=== PATIENT | female | born 1960 | race Caucasian/White ===

== ENCOUNTER → 2018-02-26 | Outpatient (CLI) | payer OTHER ==
[~2018-02-26] VITALS: Ht 167.6 cm; Wt 72.6 kg
[~2018-02-26] MED LIST: ARICEPT 5 MG TAB5 MG PO; CARVEDILOL3.125 MG PO; CELEBREX 200 M200 MG PO; CLONAZEPAM 1 MG1 M1 PO; DESYREL300 MG PO; HYDROCODON-ACE1 EA10 PO; HYDROXYZINE HCL25 M1 GT; LAMOTRIGINE200 MG PO; LEVOTHYROXINE100 MCG PO; LISINOPRIL10 MG PO; LORAZEPAM 2MG TA2 M1 PO; LYRICA25 MG PO; OXYCODONE HCL20 M1 PO; PREVACID 30MG C30 M1 PO; PROZAC 20 MG20 M1 PO; TRAZODONE 50 MG50 M1 OR; VALIUM5 MG PO; VERAPAMIL ER120 MG PO; VIIBRYD40 MG PO; WELLBUTRIN SR150 MG PO
--- NOTE | ~2018-02-26 | HPC ---
[facility] [place] [address] PAIN MANAGEMENT CONSULTATION Name: AURELIANO LOPEZ Room #: REG NISSAEnrrique Grace#: [id number] Admission: 02/26/18 Attend Phys: Carmelo Hernandez DO Discharge: Date of : 60 Report #: [id number] THIS REPORT FOR: //name// CC: Octavio Hernandez HISTORY OF PRESENT ILLNESS: The patient is an unfortunate 57-year-old female seen in consultation at the request of Dr. Victor for assistance with treatment of axial back and lumbar radicular pain. The patient notes that she has had chronic back pain for years, but pain seems to have gotten worse in December of this year without antecedent trauma and overuse. She describes pain in the low back, SI area and posterior leg down to her feet. She notes the pain is exacerbated with walking or sitting too long. She has episodic weakness and paresthesia in both legs. She denies saddle anesthesia. Denies bowel or bladder continence changes, but does note she has some urinary urgency. This is being worked up with Urology and she is scheduled to get Botox injections for the same. She uses a cane p.r.n. She incidentally notes pain in the midback as well between the shoulder blades. She describes constant and crushing pain that she rates anywhere from 7 to 10 on a VAS. REVIEW OF SYSTEMS: Complete review of systems attached to the chart and gone over with the patient. She is . She has a significant smoking history greater than 45 years. She is trying to wean. She is down to half pack a day. History of hypertension treated with Coreg and hypothyroidism for which she takes levothyroxine. Significant psychiatric disorder including depression, anxiety and bipolar disorder with jose. She has some cognitive impairment and takes Aricept, Lyrica, Viibryd, Lamictal and clonazepam. Dr. Dave has managed the patient for some time. She had been taking oxycodone 15 mg 6 a day and recently decreased to oxycodone IR 20 mg 4 a day decreasing overall morphine equivalent from 135 to 120 mg. She is certainly moving in the right direction. The patient has been on disability since 2007. I believe, this is primary due to psychiatric disorder along with some component of chronic pain. She rates the pain disability score as 62/70. PHYSICAL EXAMINATION: VITAL SIGNS: Reveals 5 feet, 6 inches, 160 pound female, BMI is 25.8 kilograms per meter squared. Blood pressure 123/76, pulse 74 and respirations 20. NEUROLOGIC: Cranial nerves 2 through 12 are grossly intact. HEENT: Pupils are equal and react to light and accommodation. Extraocular muscles are intact. She has slight nystagmus, lateral gaze deviation. NECK: Cervical range of motion is limited. Thyroid is modestly enlarged. Upper extremity strength is diminished, but symmetric. HEART: Regular and rhythmical without murmur. [address] [address] PAIN MANAGEMENT CONSULTATION Name: MICHAEL LOPEZNDA Room #: REG VERNON Grace#: [id number] Admission: 02/26/18 Attend Phys: Carmelo Hernandez DO Discharge: Date of : 60 Report #: [id number] LUNGS: Show some coarse rhonchi in the field. ABDOMEN: Shows a somewhat endomorphic build. MUSCULOSKELETAL: Rises from chair using armrest. She has an antalgic gait. Lumbar flexion is limited. Lower extremity strength is about 3-4/5 to all muscle groups tested. Patellar and Achilles reflexes are preserved. Rotation and sidebending exacerbate low back pain. Positive straight leg raise bilateral left greater than right. Mary test is negative. SKIN: Integument is intact. DIAGNOSTIC STUDIES: Include a thoracic spine MRI from 02/03/2018 which notes some degenerative changes with a mild thoracic kyphosis. Lumbar spine from same date notes grade 1 spondylolisthesis at L5-S1 with bilateral L5 spondylosis and moderate L5-S1 spinal stenosis marked on the left. ASSESSMENT: Symptomatic lumbar radiculopathy by clinical exam and history. RECOMMENDATIONS: We will seek authorization for lumbar epidural injection with fluoroscopy, L5-S1. Continue current medication per Dr. Dave. Thank you for allowing me to participate in the patient's care. I will keep you abreast of her progress. <ELECTRONICALLY SIGNED> By: Carmelo Hernandez DO 02/27/18 0822 [id number] Carmelo Hernandez DO /nt
[2018-02-26 14:19] VITALS: BP 123/76
== END ==
LOC: PAIN 07:02
DX: M54.16 Radiculopathy, lumbar region (principal)

== ENCOUNTER → 2018-03-06 | Outpatient (CLI) | payer OTHER ==
[~2018-03-06] VITALS: Ht 162.6 cm; Wt 74.8 kg
--- NOTE | ~2018-03-06 | HPC ---
[facility] [place] [address] [place] [address] PAIN MANAGEMENT CONSULTATION Name: AURELIANO LOPEZ Room #: REG [facility] Sanjay#: [id number] Admission: 03/06/18 Attend Phys: Carmelo Hernandez DO Discharge: Date of : 60 Report #: [id number] THIS REPORT FOR: //name// CC: Chacha Hernandez DATE OF SERVICE: 03/06/2018 PAIN CLINIC PROCEDURE NOTE The patient is a 58-year-old female who was seen in consultation on 02/26/2018 and diagnosed with symptomatic lumbar radiculopathy. We sought authorization for epidural injection with fluoroscopy, returns to the pain clinic today for said injection. Pain continues to be problematic, rates an 8-9 on a VAS, significantly impactful, functional assessment tool scores functional assessment at 62/70. PHYSICAL EXAMINATION: Otherwise unchanged from presentation. ASSESSMENT: Symptomatic lumbar radiculopathy by clinical exam and history. PROCEDURE: Lumbar epidural injection under fluoroscopy. PROCEDURE NOTE: After both written and informed consent to include risk of spinal cord damage, increased pain, weakness and dural puncture, the patient was taken to the fluoroscopy suite, placed in the prone position. After sterile prep and drape, a skin wheal with lidocaine was raised. A 22-gauge epidural Tuohy needle was inserted in the midline at L5-S1 with good loss to resistance. Negative aspiration for cerebrospinal fluid or blood was noted. Then 1 mL of Omnipaque under biplanar fluoroscopy showed good spread within the epidural space. This was followed with 80 mg of triamcinolone plus 1 mL of 1.5% preservative-free Xylocaine, 0.5 mL Xylocaine was then injected to flush the needle; it was removed. The patient was monitored for an appropriate period of time and discharged in good and stable condition. The patient was discharged in good and stable condition, noting significant improvement of baseline pain, in fact noting pain was absent on discharge. We will have her follow up in 3-4 weeks for reevaluation, consideration for repeat injection if indicated clinically. [address] [address] PAIN MANAGEMENT CONSULTATION Name: AURELIANO LOPEZ Room #: REG VERNON Grace#: [id number] Admission: 03/06/18 Attend Phys: Carmelo Hernandez DO Discharge: Date of : 60 Report #: [id number] Thank you for allowing me to participate in the patient's care. I will keep you abreast of her progress. By: [id number] Carmelo Hernandez DO /nt
[2018-03-06 13:44] VITALS: BP 113/72
== END | disposition home or self-care (01) ==
LOC: PAIN 07:19
DX: M54.16 Radiculopathy, lumbar region (principal); F17.210 Nicotine dependence, cigarettes, uncomplicated; Z79.899 Other long term (current) drug therapy